=== PATIENT | male | born 1980 | race Caucasian/White ===

== ENCOUNTER 2024-03-06 06:53 | Emergency (ER) | payer OTHER, SELFPAY ==
[2024-03-06 06:54] VITALS: BMI 29.1
[2024-03-06 06:59] VITALS: BP 117/82; PULSE 79; RESP 18; TEMP 36.6; O2SAT 97
--- NOTE | 2024-03-06 07:03 | XR_ITS ---
Examination: Hand, right 3 views Technique: Hand AP, oblique, lateral 3 views Date and time of exam: March 06, 2024 0708 hrs. Indications: Injury to hand with the drill today, hand pain and swelling Findings: No acute fracture No dislocation No opaque foreign body Impression: No opaque foreign body
--- NOTE | 2024-03-06 07:05 | PD.EDHAND ---
Upper Extremity Injury RME/HPI General Chief Complaint: Hand/Wrist Problems Stated Complaint: INJURY TO RIGHT HAND Time Seen by Provider: 03/06/24 06:57 Arrival date/time: 03/06/24 06:53 43-year-old male presents the emergency department today with complaints of injury to his right hand patient reports that he was using a drill yesterday and the drill bit broke and punctured his right hand on the palmar aspect Limitations: no limitations Related Data Home Medications ?Medication ?Instructions ?Recorded ?Confirmed naproxen sodium 220 mg tablet 220 mg PO Q12H PRN Pain 04/05/22 04/05/22 (Aleve) Previous Rx's ?Medication ?Instructions ?Recorded polyethylene glycol 3350 17 gram 17 g PO QDAY #30 ea 04/08/22 oral powder packet (Miralax) cephalexin 500 mg capsule 500 mg PO TID 7 days #21 caps 03/06/24 hydrocodone 5 mg-acetaminophen 325 1 tab PO BID PRN pain #6 tabs 03/06/24 mg tablet ibuprofen 600 mg tablet 600 mg PO Q6H #30 tabs 03/06/24 Allergies Allergy/AdvReac Type Severity Reaction Status Date / Time No Known Allergies Allergy Verified 12/02/22 15:28 Review of Systems Review of Systems Systems Reviewed: All systems reviewed, normal except as documented Constitutional Constitutional: Reports system reviewed and no additional complaints, except as documented, Denies fever(s) and Denies headache(s) Eyes Eyes: Reports system reviewed and no additional complaints, except as documented and Denies blurry vision ENT Ears, Nose, Mouth, and Throat: Reports system reviewed and no additional complaints, except as documented, Denies headache(s), Denies nasal congestion and Denies nasal discharge Cardiovascular Cardiovascular: Reports system reviewed and no additional complaints, except as documented, Denies chest pain and Denies dyspnea Respiratory Respiratory: Reports system reviewed and no additional complaints, except as documented, Denies chest congestion, Denies cough and Denies dyspnea Gastrointestinal Gastrointestinal: Reports system reviewed and no additional complaints, except as documented and Denies abdominal pain Integumentary/Breasts Skin/Breast: Reports system reviewed and no additional complaints, except as documented, Denies rash and Reports wounds (Small puncture wound palmar aspect right hand) Neurologic Neurologic: Reports system reviewed and no additional complaints, except as documented, Reports as per HPI and Denies headache(s) Past Medical History Past Medical History NEUROLOGIC: Positive Neurological Disorders and Migraine; Negative Seizures CARDIAC: Negative Cardiac Disorders or Congestive Heart Failure RESPIRATORY: Negative Chronic Obstructive Pulmonary Disease (COPD) GASTROINTESTINAL: Positive Gastrointestinal Disorders (Abdominal pain, constipation) GENITOURINARY: Negative Genitourinary Disorders or Renal Disease MUSCULOSKELETAL: Positive Musculoskeletal Disorders and Arthritis (Ruling out RA at this time being worked up.) ENDOCRINE: Negative Endocrine Disorders, Diabetes Mellitus Type 1 or Diabetes Mellitus Type 2 HEMATOLOGIC: Negative Blood Disorders or Anemia PSYCHO/SOCIAL: Positive Anxiety (No meds) OTHER HISTORY: Negative Hospitalization, Autoimmune Disease, Blood Transfusions, Anesthesia Reactions or Cancer Family History FAMILY HISTORY: Positive Family Cardiac Disorders and Family Cancer Social History SMOKING STATUS: Current some day smoker ED Exam General Limitations: Present no limitations General appearance: Present alert and in no apparent distress Head Head exam: Present atraumatic Eye Eye exam: Present normal appearance, PERRL and EOMI ENT ENT exam: Present normal exam, normal oropharynx and mucous membranes moist Neck Neck exam: Present normal inspection, full ROM and trachea midline Chest Chest inspection: Present normal inspection and symmetric chest wall rise Respiratory Respiratory exam: Present normal lung sounds bilaterally Cardiovascular Cardiovascular exam: Present regular rate, normal rhythm and normal heart sounds Abdominal Exam Abdominal exam: Present soft and normal bowel sounds Extremities Exam Extremities exam: Present full ROM, tenderness, normal capillary refill and other (Puncture wound right hand) Back Exam Back exam: Present normal inspection and full ROM Neurological Exam Neurological exam: Present alert, oriented X3 and CN II-XII intact Psychiatric Psychiatric exam: Present normal affect and normal mood Skin Skin exam: Present warm, dry and other (Puncture wound right hand) Course Quality Measures none Orders Category Date Time Status XR hand comp RT min 3V Stat Exams 03/06/24 07:03 Completed Ibuprofen Tab [Motrin Tab] Med 03/06/24 07:03 Discontinued 800 mg PO X1 ONE Tet,Diphth,Pertuss(Acell)-Tdap [Boostrix Vacc] Med 03/06/24 07:03 Discontinued 0.5 ml IMI .ONCE ONE cephALEXin [Keflex] Med 03/06/24 07:03 Discontinued 500 mg PO X1 ONE Vital Signs Vital signs: Vital Signs Temperature 97.9 F 03/06/24 06:59 Pulse Rate 79 03/06/24 06:59 Respiratory Rate 18 03/06/24 06:59 Blood Pressure 117/82 03/06/24 06:59 Pulse Oximetry (%) 97 03/06/24 06:59 Oxygen Delivery Method Room Air 03/06/24 06:59 O2 saturation 97% room air within normal limits Extremity Injury MDM Narrative MDM Narrative:: 43-year-old male presents the emergency department today with complaints of injury to his right hand patient reports that he was using a drill yesterday and the drill bit broke and punctured his right hand on the palmar aspect On exam patient has tenderness at puncture site patient has puncture site in the palmar aspect of the right hand Patient is able to move all his fingers no swelling X-ray obtained patient given tetanus shot and antibiotics Patient instructed to follow-up with PCP in order get referral to orthopedics and for any worsening symptoms to return immediately Patient data External records reviewed:: [facility] previous records Clinical information provided by:: patient Social determinants that could affect healthcare access:: none Patient has the following chronic illnesses:: None How is presenting disease/condition affected by chronic disease/condition?: no chronic disease Evaluation data The following diagnostics were reviewed and interpreted by me:: radiology exam(s) Lab and/or radiology exams considered but not ordered:: Radiology obtain Interpretation Summary: Reviewed by me Medications / Prescriptions Medications or Prescriptions considered but not ordered:: Given Medication administrations:: Medication Administration History Discontinued Medications Cephalexin HCl (Cephalexin 250 Mg Capsule) 500 mg PO X1 ONE Stop: 03/06/24 07:04 Last Admin: 03/06/24 07:16 Dose: 500 mg Documented By: OA Diphtheria/Tetanus/Acell Pertussis (Diphth,Pertuss(Acell),Tet Vac 0.5 Ml Vial) 0.5 ml IMi .ONCE ONE Stop: 03/06/24 07:04 Last Admin: 03/06/24 07:16 Dose: 0.5 ml Documented By: WILLIAMS Ibuprofen (Ibuprofen Tab 400 Mg Tablet) 800 mg PO X1 ONE Stop: 03/06/24 07:04 Last Admin: 03/06/24 07:16 Dose: 800 mg Documented By: WILLIAMS Given Consultations Consultation(s) initiated? (list below): No Diagnosis Upper Extremity Injury Differential Diagnosis: other (Puncture wound, laceration or abrasion) Most likely diagnosis given after review of the tests above:: Puncture wound Admission Indicated Admission indicated?: not indicated Admission Request Was there a request for admission?: No Disposition Plan Disposition Plan: Discharge Discharge Attestation Discharge Attestation: The patient and all family members were given an opportunity to ask questions and understood the discharge instructions. Discharge instructions specifically effects, indications for sooner follow up or return to the emergency department, and the expected course of current diagnosis. Patient condition: Stable Discharge Plan Plan Patient Disposition: HOME (Self Care) Disposition Comment: Stable Prescriptions/Referrals Prescriptions/Med Rec: New hydrocodone-acetaminophen 5-325 mg tablet 1 tab PO BID MDD 10 PRN (Reason: pain) Qty: 6 0RF cephalexin 500 mg capsule 500 mg PO TID 7 Days Qty: 21 0RF ibuprofen 600 mg tablet 600 mg PO Q6H Qty: 30 0RF No Action naproxen sodium [Aleve] 220 mg Tablet 220 mg PO Q12H PRN (Reason: Pain) polyethylene glycol 3350 [Miralax] 17 gram Powder In Packet 17 g PO QDAY Qty: 30 2RF Rx Instructions: Mix with 1 glass of water and drink daily Problem List Clinical Impression: Puncture wound of right hand Patient/Caregiver Discharge Instructions Education Materials: First Aid: Punctures Additional Instructions: Please follow up with your primary care doctor in the next 24-48hrs for any worsening symptoms return here immediately Print Language: Lebanese Stand Alone Forms: [employer] Award Info., Patient Portal Info Letter Vaccines Vaccines Given During Stay: TDaP PA/REGIONAL SALES ENGINEER Supervising Physician PA/REGIONAL SALES ENGINEER Supervising Physician: Dr. Khalil
[2024-03-06] MEDS: DIPHTH,PERTUSS(ACELL),TET VAC 0.5 ML VIAL IMi (07:16)
[2024-03-06] MEDS: cephALEXin 250 MG CAPSULE 500 MG PO (07:16)
[2024-03-06] MEDS: IBUPROFEN TAB 400 MG TABLET 800 MG PO (07:16)
== END 2024-03-06 09:20 | disposition home or self-care (01) ==
LOC: SERX 07:26
PROVIDERS: Emergency Provider Emergency Medicine
DX: S61.431A Puncture wound without foreign body of right hand, initial encounter (principal); W29.8XXA Contact with other powered hand tools and household machinery, initial encounter; Z23 Encounter for immunization
CPT/HCPCS: 73130; 90471; 90715; 99283; A9270

== ENCOUNTER 2024-06-04 18:30 | Emergency (ER) | payer OTHER, SELFPAY ==
[2024-06-04 18:31] VITALS: BMI 29.5
--- NOTE | 2024-06-04 18:32 | EKG_ITS ---
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
[2024-06-04 18:36] VITALS: BP 135/94; PULSE 79; RESP 17; TEMP 36.6; O2SAT 98
--- NOTE | 2024-06-04 18:46 | XR_ITS ---
Examination: PA chest single view TECHNIQUE: Upright PA chest single view. Examination date time: June 04, 2024 at 1939 hours Comparison 12/02/2022 INDICATIONS: Chest pain today. FINDINGS: Normal heart size. Lungs are clear. The osseous structures are intact Impression: No active disease
[2024-06-04 19:23] LABS: Basophils # (Auto) 0.1 Thou/mm3 (0.0-0.2); Basophils % (Auto) 1 % (0-2.5); Eosinophils # (Auto) 0.1 Thou/mm3 (0.0-0.5); Eosinophils % (Auto) 1 % (0-10); Hematocrit 46.2 % (41.0-53.0); Hemoglobin 16.4 g/dL (13.5-16.0); Immature Granulocytes % (Auto) 0 % (0-0); Immature Granulocytes Auto 0.02 Thou/mm3 (0.00-0.00); Lymphocytes # (Auto) 1.4 Thou/mm3 (1.0-4.8); Lymphocytes % (Auto) 18 % (10-50); Mean Corpuscular HGB Conc 35.5 g/dl (31.0-37.0); Mean Corpuscular Hemoglobin 29.3 pg (25.0-35.0); Mean Corpuscular Volume 83 fL (80-100); Monocytes # (Auto) 0.6 Thou/mm3 (0.0-0.8); Monocytes % (Auto) 8 % (0-12); Neutrophils # (Auto) 5.7 Thou/mm3 (1.8-7.7); Neutrophils % (Auto) 72 % (37-80); Nucleated Red Blood Cell % 0 /100 WBC (0); Platelet Count 235 Thou/mm3 (140-440); RDW Standard Deviation 37.2 fL (35.1-43.9); Red Blood Count 5.59 Miln/mm3 (4.50-5.90); White Blood Count 7.8 Thou/mm3 (3.8-10.6)
[2024-06-04 19:39] LABS: Alanine Aminotransferase 33 U/L (10-49); Albumin, Serum 4.5 gm/dL (3.5-5.0); Albumin/Globulin Ratio 1.9 (1.2-2.2); Alkaline Phosphatase 47 U/L (46-116); Anion Gap 6 (7-16); Aspartate Amino Transferase 24 U/L (0-34); BUN/Creatinine Ratio 18 Ratio (12-20); Bilirubin,Total 0.8 mg/dL (0.3-1.2); Blood Urea Nitrogen 20 mg/dL (9-23); Calcium 10.3 mg/dL (8.3-10.6); Calcium (Corrected) 10.3 mg/dL (8.5-10.1); Chloride 106 mMol/L (98-107); Creatinine (Component) 1.1 mg/dL (0.6-1.3); Estimated Creatinine Clearance 105.5 mL/min (>60); Globulin 2.4 gm/dL (2.3-3.5); Glucose 93 mg/dL (74-106); Osmolality,Calculated 278 (275-295); Potassium 4.5 mMol/L (3.4-5.1); Sodium 138 mMol/L (136-145); Total Protein 6.9 gm/dL (5.7-8.2); Troponin I < 0.002 ng/mL (0.0-0.045); eGFR > 60 See Note
[2024-06-04 19:41] LABS: D-Dimer < 250 ng/mL (<600)
[2024-06-04] MEDS: DIAZEPAM 5 MG TABLET PO (20:39)
[2024-06-04 20:50] LABS: Amphetamine/Methamp Scrn,U Negative (Negative); Barbiturate Screen,Urine Negative (Negative); Benzodiazepines Screen,Urine Negative (Negative); Benzoylecgonine Screen, Ur Negative (Negative); Fentanyl Screen,Urine Negative (Negative); Opiate Screen,Urine Negative (Negative); THC Screen,Urine Negative (Negative)
[2024-06-04 22:25] LABS: Troponin I < 0.002 ng/mL (0.0-0.045)
--- NOTE | 2024-06-05 03:56 | PD.EDCHEST ---
ED Chest Pain RME/HPI General Chief Complaint: Chest Pain Stated Complaint: CHEST PAIN RADIATING TO BACK AND NECK Time Seen by Provider: 06/04/24 18:46 Arrival date/time: 06/04/24 18:30 43M with history of anxiety presents to ED with 2 days of L-sided CP radiating to back and neck. Patient has been taking his prescribed Zoloft. Limitations: no limitations Related Data Home Medications ?Medication ?Instructions ?Recorded ?Confirmed naproxen sodium 220 mg tablet 220 mg PO Q12H PRN Pain 04/05/22 04/05/22 (Aleve) Previous Rx's ?Medication ?Instructions ?Recorded polyethylene glycol 3350 17 gram 17 g PO QDAY #30 ea 04/08/22 oral powder packet (Miralax) hydrocodone 5 mg-acetaminophen 325 1 tab PO BID PRN pain #6 tabs 03/06/24 mg tablet ibuprofen 600 mg tablet 600 mg PO Q6H #30 tabs 03/06/24 Allergies Allergy/AdvReac Type Severity Reaction Status Date / Time No Known Allergies Allergy Verified 06/04/24 18:30 Review of Systems Review of Systems Systems Reviewed: All systems reviewed, normal except as documented Constitutional Constitutional: Reports system reviewed and no additional complaints, except as documented, Denies fever(s) and Denies headache(s) ENT Ears, Nose, Mouth, and Throat: Denies disequilibrium and Denies headache(s) Cardiovascular Cardiovascular: Reports system reviewed and no additional complaints, except as documented, Reports as per HPI, Reports chest pain and Denies dyspnea Respiratory Respiratory: Reports system reviewed and no additional complaints, except as documented, Denies cough and Denies dyspnea Gastrointestinal Gastrointestinal: Reports system reviewed and no additional complaints, except as documented, Denies abdominal pain, Denies nausea and Denies vomiting Neurologic Neurologic: Reports system reviewed and no additional complaints, except as documented, Denies confusion, Denies disequilibrium and Denies headache(s) Psychiatric Psychiatric: Denies confusion Past Medical History Past Medical History NEUROLOGIC: Positive Neurological Disorders and Migraine; Negative Seizures CARDIAC: Negative Cardiac Disorders or Congestive Heart Failure RESPIRATORY: Negative Chronic Obstructive Pulmonary Disease (COPD) GASTROINTESTINAL: Positive Gastrointestinal Disorders (Abdominal pain, constipation) GENITOURINARY: Negative Genitourinary Disorders or Renal Disease MUSCULOSKELETAL: Positive Musculoskeletal Disorders and Arthritis (Ruling out RA at this time being worked up.) ENDOCRINE: Negative Endocrine Disorders, Diabetes Mellitus Type 1 or Diabetes Mellitus Type 2 HEMATOLOGIC: Negative Blood Disorders or Anemia PSYCHO/SOCIAL: Positive Anxiety (No meds) OTHER HISTORY: Negative Hospitalization, Autoimmune Disease, Blood Transfusions, Anesthesia Reactions or Cancer Family History FAMILY HISTORY: Positive Family Cardiac Disorders and Family Cancer Social History SMOKING STATUS: Current some day smoker ED Exam General Limitations: Present no limitations General appearance: Present alert and in no apparent distress Head Head exam: Present atraumatic Eye Eye exam: Present normal appearance, PERRL and EOMI ENT ENT exam: Present normal exam, normal oropharynx and mucous membranes moist Neck Neck exam: Present normal inspection, full ROM and trachea midline Chest Chest inspection: Present normal inspection and symmetric chest wall rise Respiratory Respiratory exam: Present normal lung sounds bilaterally Cardiovascular Cardiovascular exam: Present regular rate, normal rhythm and normal heart sounds Abdominal Exam Abdominal exam: Present soft and normal bowel sounds Extremities Exam Extremities exam: Present normal inspection and full ROM Back Exam Back exam: Present normal inspection and full ROM Neurological Exam Neurological exam: Present alert, oriented X3 and CN II-XII intact Psychiatric Psychiatric exam: Present normal affect and normal mood Skin Skin exam: Present warm, dry, intact and normal color Course Quality Measures none Orders Category Date Time Status EKG (ED ONLY) *Do not use* NOW Care 06/04/24 18:32 Completed EKG (ED Only) Stat Exams 06/04/24 18:32 Draft XR chest 1V portable Stat Exams 06/04/24 18:46 Completed CBC Stat Lab 06/04/24 19:00 Completed Comprehensive Metabolic Panel Stat Lab 06/04/24 19:00 Completed D-Dimer Stat Lab 06/04/24 19:00 Completed Drug Screen,Urine Stat Lab 06/04/24 19:20 Completed Troponin I Stat Lab 06/04/24 19:00 Completed Troponin I Stat Lab 06/04/24 22:02 Completed Diazepam [Valium] Med 06/04/24 20:23 Discontinued 5 mg PO X1 ONE Vital Signs Vital signs: Vital Signs Temperature 97.9 F 06/04/24 18:36 Pulse Rate 79 06/04/24 18:36 Respiratory Rate 17 06/04/24 18:36 Blood Pressure 135/94 H 06/04/24 18:36 Pulse Oximetry (%) 98 06/04/24 18:36 Oxygen Delivery Method Room Air 06/04/24 18:36 O2 at 98% on RA and WNLs Chest Pain MDM Narrative MDM Narrative:: 43M with history of anxiety presents to ED with 2 days of L-sided CP radiating to back and neck. Patient has been taking his prescribed Zoloft. Physical exam reveals no chest wall tenderness. Clear lungs. RRR. Patient is afebrile, alert, but anxious. EKG is sinus morena of 59. CXR normal. Normal trop (2x). Normal D-dimer. CMP, CBC, and tox screen unremarkable. Valium improved symptoms. 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 Patient data External records reviewed:: [facility] previous records Clinical information provided by:: patient Social determinants that could affect healthcare access:: mental health Patient has the following chronic illnesses:: anxiety How is presenting disease/condition affected by chronic disease/condition?: exacerbated by Evaluation data The following diagnostics were reviewed and interpreted by me:: lab results, radiology exam(s) and EKG tracing(s) Lab and/or radiology exams considered but not ordered:: ordered Interpretation Summary: above Medications / Prescriptions Medications or Prescriptions considered but not ordered:: ordered Medication administrations:: Medication Administration History Discontinued Medications Diazepam (Diazepam 5 Mg Tablet) 5 mg PO X1 ONE Stop: 06/04/24 20:24 Last Admin: 06/04/24 20:39 Dose: 5 mg Documented By: above Consultations Consultation(s) initiated? (list below): No Diagnosis Chest Pain Differential Diagnosis: fracture of rib, pneumothorax, stable angina, unstable angina pectoris, atypical chest pain, st elevation myocardial infarction, costochondritis, chest pain, biliary colic and other (dissection, anxiety) Most likely diagnosis given after review of the tests above:: atypical chest pain Admission Indicated Admission indicated?: not indicated Admission Request Was there a request for admission?: No Disposition Plan Disposition Plan: Discharge Discharge Attestation Discharge Attestation: The patient and all family members were given an opportunity to ask questions and understood the discharge instructions. Discharge instructions specifically effects, indications for sooner follow up or return to the emergency department, and the expected course of current diagnosis. Patient condition: Stable Discharge Plan Plan Patient Disposition: HOME (Self Care) Disposition Comment: Stable Prescriptions/Referrals Prescriptions/Med Rec: No Action hydrocodone-acetaminophen 5-325 mg tablet 1 tab PO BID MDD 10 PRN (Reason: pain) Qty: 6 0RF ibuprofen 600 mg tablet 600 mg PO Q6H Qty: 30 0RF naproxen sodium [Aleve] 220 mg Tablet 220 mg PO Q12H PRN (Reason: Pain) polyethylene glycol 3350 [Miralax] 17 gram Powder In Packet 17 g PO QDAY Qty: 30 2RF Rx Instructions: Mix with 1 glass of water and drink daily Referrals: No Primary/Family,Physician [Primary Care Provider] - In 1 week Problem List Clinical Impression: Atypical chest pain Patient/Caregiver Discharge Instructions Education Materials: ED Chest Pain, Uncertain Cause Additional Instructions: Please follow-up with PCP within 24-48 hours and return immediately if symptoms worsen. Print Language: Cypriot Stand Alone Forms: Patient Portal Info Letter PA/MOISTURE METER OPERATOR Supervising Physician PA/MOISTURE METER OPERATOR Supervising Physician: Dr. Yoder
== END 2024-06-04 22:50 | disposition home or self-care (01) ==
PROVIDERS: Physician Assistant; Emergency Provider Emergency Medicine
DX: R07.89 Other chest pain (principal); F41.9 Anxiety disorder, unspecified
CPT/HCPCS: 36415; 71045; 80053; 80307; 84484; 85025; 85379; 93005; 99283; A9270